=== PATIENT | male | born 2000 | race Caucasian/White ===

== ENCOUNTER 2024-08-14 12:43 | Emergency (ER) | payer MEDICAID, SELFPAY ==
[2024-08-14 12:55] VITALS: BP 150/98; PULSE 104; RESP 18; TEMP 37.2; O2SAT 98; BMI 26.0
--- NOTE | 2024-08-14 12:57 | ED_ITS ---
Discharge Plan Disposition Patient Disposition: Home, Self-Care Condition: Good Prescriptions Prescriptions: New amoxicillin 875 mg tablet 875 mg PO Q12H Qty: 20 0RF methylprednisolone 4 mg Tablets,Dose Pack 4 mg PO DIRECTED 6 Days Qty: 21 0RF Rx Instructions: Take 1 pack as directed for 6 days yiyzfgnjcyrpcqd-pziepfrqr-PD [Bromfed DM] 2-30-10 mg/5 mL Syrup 5 ml PO Q6H PRN (Reason: Cough) Qty: 240 0RF Referrals Follow up/Referrals: Provider,Referral, MD [Primary Care Provider] - See instructions Activity Restrictions/Add. Instructions Additional Instructions/Restrictions: Drink plenty of fluids. Take tylenol or ibuprofen for pain or fever. Take the medications as directed. Follow up with your regular doctor. GO TO THE ER FOR ANY WORSENING SYMPTOMS Don't start the oral steroids (medrol dose pack) until tomorrow since you had the shot here. Clinical Impressions Clinical Impression: Uvulitis, Pharyngitis Stand Alone Forms Stand Alone Forms: Work/School Release Instructions Patient Instructions: DI for Pharyngitis/Tonsillopharyngitis -- Adult, Ceftriaxone Injection, Dexamethasone Injection, DI for Uvulitis Print Language Print Language: Faroese Discharge ED Provider: Shahid Moore [facility] General Stated complaint: sore throat and swollen, mucus Time Seen by Provider: 08/14/24 12:56 History of Present Illness Provider Complaint: He states that for the past 3 days he has had worsening sore throat, productive cough with greenish sputum and malaise. He denies fever. He denies shortness of breath. He denies drooling or the inability to swallow. Related Data Previous Rx's ?Medication ?Instructions ?Recorded amoxicillin 875 mg tablet 875 mg PO Q12H #20 tabs 08/14/24 mfqfldeigemxgae-nfndagwoutyojcs-WK 5 ml PO Q6H PRN Cough #240 mL 08/14/24 2 mg-30 mg-10 mg/5 mL oral syrup (Bromfed DM) methylprednisolone 4 mg tablets in 4 mg PO DIRECTED 6 days #21 tabs 08/14/24 a dose pack Allergies Allergy/AdvReac Type Severity Reaction Status Date / Time No Known Allergies Allergy Verified 08/14/24 13:03 [facility] Disclaimer: The information contained in this section may have been updated after the patient was seen, as this information can be updated by other users. Medical History (Updated 08/14/24 @ 13:18 by Shahid Moore APRN) Depression Anxiety Surgical History (Updated 08/14/24 @ 13:04 by Poornima Osei RN) History of tympanostomy tube placement Social History Smoking Status: Never smoker alcohol intake: never current occupational status: employed Travel in the last 8 weeks: None ROS Obtained: Yes All systems reviewed & no additional complaints except as documented Constitutional Constitutional: Reports as per HPI, Reports chills and Denies fever(s) Eyes Eyes: Denies eye discharge ENT Ears, Nose, Mouth, and Throat: Reports as per HPI Cardiovascular Cardiovascular: Denies chest pain Respiratory Respiratory: Denies shortness of breath, Reports chest congestion, Reports cough, Denies stridor and Denies wheezing Gastrointestinal Gastrointestingal: Reports nausea; Denies abdominal pain, constipation, cramping, diarrhea or vomiting Musculoskeletal Musculoskeletal: Denies arthralgias Integumentary/Breasts Skin/Breast: Denies rash Neurologic Neurologic: Denies paresthesias Allergic/Immunologic Allergic/Immunologic: Denies wheezing Physical Exam General General appearance: alert and in no apparent distress Head Head exam: atraumatic, normocephalic and normal inspection Eye Eye exam: Present normal appearance, PERRL and EOMI ENT ENT exam: Present mucous membranes moist and normal external ear exam Expanded ENT Exam TM/Canal exam: Bilateral TM: erythema Nose exam: Absent sinus tenderness Nasal speculum exam: Bilateral: normal Mouth exam: Present normal external inspection; Absent drooling Throat exam: Present tonsillar erythema, tonsillomegaly, tonsillar exudate and other (enlarged uvula) Neck Neck exam: Present normal inspection, full ROM and trachea midline; Absent meningismus or lymphadenopathy Chest Chest inspection: Present normal inspection and symmetric chest wall rise; Absent tenderness Respiratory Respiratory exam: Present normal lung sounds bilaterally; Absent respiratory distress Cardiovascular Cardiovascular exam: Present regular rate and normal rhythm; Absent JVD Abdominal Exam Abdominal exam: Present soft and normal bowel sounds; Absent distention, tenderness or guarding Extremities Exam Extremities exam: Present normal inspection, full ROM and normal capillary refill; Absent calf tenderness Back Exam Back exam: Present normal inspection; Absent tenderness Neurological Exam Neurological exam: Present alert and oriented X3 Psychiatric Psychiatric exam: Present normal affect and normal mood Skin Skin exam: Present warm, dry, intact and normal color Lymphatic Lymphatic Findings: no adenopathy Medical Decision Making Medical Records Medical records reviewed: No I reviewed the patient's medical records. Screening: Per USPSTF and CDC recommendations, given the prevalence of disease in our region, it is our hospital?s policy to screen for HIV and viral Hepatitis for all patients aged 18 and over and those with ongoing risk factors. Rajesh Inquiry Pt receiving controlled substance: No Lab Data Lab results reviewed: Yes I reviewed the patient's lab results.
[2024-08-14 13:12] LABS: UTC Strep Screen (Rapid) Negative (Negative)
[2024-08-14] MEDS: DEXAMETHASONE 4MG/ML 1ML VIAL 8 MG IM (13:17)
[2024-08-14] MEDS: cefTRIAXone 1GM VIAL 1 GM IM (13:17)
[2024-08-14] MEDS: LIDOCAINE 1% 5ML PF VIAL IM (13:17)
[2024-08-14 13:26] VITALS: BP 150/98; PULSE 104; RESP 18; TEMP 37.2; O2SAT 98
[2024-08-14 13:39] LABS: Coronavirus 19, PCR Not Detected (NotDetected); Influenza A, PCR Not Detected (NotDetected); Influenza B, PCR Not Detected (NotDetected)
== END 2024-08-14 13:32 | disposition home or self-care (01) ==
PROVIDERS: Emergency Provider Nurse Practitioner Family
DX: J02.9 Acute pharyngitis, unspecified (principal); K13.79 Other lesions of oral mucosa
CPT/HCPCS: 87636; 87880; 96372; 99213; G0381; J0696; J1100

== ENCOUNTER 2024-08-15 12:05 | Emergency (ER) | payer MEDICAID, SELFPAY ==
[2024-08-15 12:16] VITALS: BP 136/84; PULSE 102; RESP 16; TEMP 37.2; O2SAT 100; BMI 26.0
[2024-08-15 12:20] VITALS: BP 144/76; PULSE 78; RESP 16; TEMP 37.2; O2SAT 99
--- NOTE | 2024-08-15 12:34 | ED_ITS ---
Discharge Plan Disposition Patient Disposition: Home, Self-Care Condition: Good Prescriptions Prescriptions: No Action amoxicillin 875 mg tablet 875 mg PO Q12H Qty: 20 0RF methylprednisolone 4 mg Tablets,Dose Pack 4 mg PO DIRECTED 6 Days Qty: 21 0RF Rx Instructions: Take 1 pack as directed for 6 days rkgaukciukqpcyb-gmtvlgikl-TC [Bromfed DM] 2-30-10 mg/5 mL Syrup 5 ml PO Q6H PRN (Reason: Cough) Qty: 240 0RF Referrals Follow up/Referrals: Provider,Referral, MD [Primary Care Provider] - See instructions Activity Restrictions/Add. Instructions Additional Instructions/Restrictions: Follow-up with your family doctor regarding this visit to the emergency department within 48 hours. You should begin to notice difference after about 72 hours on antibiotics. Warm salt water rinses and gargling will help the throat as well. Daily Zyrtec can help with drainage. Continue taking antibiotic as prescribed. Clinical Impressions Clinical Impression: Uvulitis Print Language Print Language: Cook Islander Discharge ED Provider: Jenaro Beach General Adult HPI General Chief complaint: Recheck/Abnormal Lab/Rx Stated complaint: elongated uvaula, sore throat Time Seen by Provider: 08/15/24 12:16 Mode of Arrival: Ambulatory Source of Information: Patient Limitations: No Limitations Description of Symptoms (Recalled from ER Triage Doc. by RN): Pt. presents to the end with sore throat, painful swallowing and inflammed uvula. He was see in the [facility] yesterday and tested negative for strep, flu, and covid but was given steriods and amoxicillin for treatment of uvulitis/ pharangitis and told to come back in today if symptoms weren't better. He states he feels about the same and is still having painful swallowing and sore throat. History of Present Illness HPI narrative: Please note that above description of symptoms, in this electronic medical record under categorization of recalled from ER triage doctor by RN are reflective of an initial nursing assessment, however, is not reflective of my full history and physical exam that was personally taken and clarified. Consequentially, this preceding description of symptoms, which may include the patient's categorized chief complaint in the EMR, do not reflect my personal clinical impression, and the ultimate description of history of present illness and patient stated complaints should be deferred to this section of the note. Unless stated otherwise or congruent with this section of the note, additional signs, symptoms, or incongruence should be interpreted as inaccurate with my clinical impression. Related Data Previous Rx's ?Medication ?Instructions ?Recorded amoxicillin 875 mg tablet 875 mg PO Q12H #20 tabs 08/14/24 fwmwdygntfhnbyn-ymsjiqrefrmubvh-YE 5 ml PO Q6H PRN Cough #240 mL 08/14/24 2 mg-30 mg-10 mg/5 mL oral syrup (Bromfed DM) methylprednisolone 4 mg tablets in 4 mg PO DIRECTED 6 days #21 tabs 08/14/24 a dose pack Allergies Allergy/AdvReac Type Severity Reaction Status Date / Time No Known Allergies Allergy Verified 08/14/24 13:03 [facility] Disclaimer: The information contained in this section may have been updated after the patient was seen, as this information can be updated by other users. Medical History (Updated 08/15/24 @ 12:35 by Jenaro Beach MD) Depression Anxiety Surgical History (Updated 08/14/24 @ 13:04 by Poornima Osei RN) History of tympanostomy tube placement Social History (Updated 08/14/24 @ 13:36 by Shahid Moore APRN) Smoking Status: Never smoker alcohol intake: never current occupational status: employed Travel in the last 8 weeks: None ROS Obtained: Yes All systems reviewed & no additional complaints except as documented Physical Exam General General appearance: alert Head Head exam: atraumatic and normocephalic Eye Eye exam: Present normal appearance, PERRL and EOMI ENT ENT exam: Present other (Pharyngitis with uvulitis. No evidence of uvular deviation, palatal swelling, trismus, external neck swelling, submental induration, dental abscess, angioedema, or other abnormal katarzyna pharyngeal fin dings) Neck Neck exam: Present normal inspection, full ROM and trachea midline Respiratory Respiratory exam: Absent respiratory distress, wheezes, stridor, accessory muscle use or prolonged expiratory phase Cardiovascular Cardiovascular exam: Present other (Pulses equal symmetric in upper and lower extremities) Abdominal Exam Abdominal exam: Present soft; Absent distention, tenderness or pulsatile mass Extremities Exam Extremities exam: Absent edema Neurological Exam Neurological exam: Present alert, oriented X3 and CN II-XII intact; Absent motor sensory deficit Skin Skin exam: Present warm and dry; Absent diaphoresis or erythema Medical Decision Making Medical Records Medical records reviewed: Yes I reviewed the patient's medical records. Screening: Per USPSTF and CDC recommendations, given the prevalence of disease in our region, it is our hospital?s policy to screen for HIV and viral Hepatitis for all patients aged 18 and over and those with ongoing risk factors. Rajesh Inquiry Pt receiving controlled substance: No Rajesh was queried for this patient: No Vital Signs: 08/15/24 12:16 08/15/24 12:20 Temperature 99.0 F 99.0 F Temperature Source Oral Oral Pulse Rate [Right Brachial] 102 H 78 Respiratory Rate 16 16 Blood Pressure [Right Arm] 136/84 144/76 H Blood Pressure Mean [Right Arm] 101 98 Blood Pressure Source [Right Arm] Automatic Cuff Automatic Cuff Blood Pressure Position [Right Arm] Sitting Sitting 02 Sat by Pulse Oximetry 100 99 Oxygen Delivery Method Room Air Room Air Medical Decision Narrative: 24-year-old male presenting with uvulitis. Patient started having symptoms of drainage, cough, upper respiratory infection about a week prior to this. For the last 36 hours or so he developed throat. Went to the urgent care yesterday. Received antibiotic shot, Decadron shot and amoxicillin for home-going. Was told if it did not get better by yesterday evening to come back to the emergency department. Patient states that it is not any worse, not any better. Able to tolerate p.o. intake, no voice changes, red flag signs or symptoms. Came back because it was not improved. History obtained with patient. On evaluation, patient very well-appearing. He does have uvulitis with pharyngitis, no evidence of other red flag signs or symptoms. No evidence of tonsillitis, exudate, uvular deviation, palatal swelling, trismus, external neck swelling, submental induration, dental abscess, angioedema, or other abnormal katarzyna pharyngeal findings. Because of this I feel patient is on appropriate therapy, ready for discharge with outpatient management. Because patient at baseline without signs or symptoms of clinical decompensation, deemed appropriate for discharge. Results were relayed to patient who voiced understanding and were agreeable to outpatient management and follow up. I discussed my clinical impression with patient and answered all questions. At this time, the evidence for any other entities in the differential is insufficient to warrant any further testing or ED observation. This was explained as well. Advisory was given that persistent or worsening symptoms require further evaluation. I confirmed the understanding of this discussion. Net Mvc Developer disclaimer Much of this encounter note is an electronic rn interventional spoken language to printed text. Electronic rn interventional of the spoken language may permit errors. Although I have reviewed the note, some errors may still exist. Critical Care Critical Care Time Critical Care Time: No
[2024-08-15 12:38] VITALS: BP 122/78; PULSE 78; RESP 16; TEMP 37.2; O2SAT 99
== END 2024-08-15 12:39 | disposition home or self-care (01) ==
PROVIDERS: Emergency Provider Emergency Medicine
DX: K13.79 Other lesions of oral mucosa (principal)
CPT/HCPCS: 99282

== ENCOUNTER 2024-08-21 21:11 | Emergency (ER) | payer SELFPAY ==
[2024-08-21 21:12] VITALS: BP 143/78; PULSE 100; RESP 18; TEMP 37.1; O2SAT 98; BMI 21.2; BMI 26.0
[2024-08-21] MEDS: DEXAMETHASONE 4MG TABLET 10 MG PO (21:42)
[2024-08-21] MEDS: METHOCARBAMOL 500MG TABLET 1500 MG PO (21:42)
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
[2024-08-21 22:40] VITALS: BP 135/80; PULSE 88; RESP 18; TEMP 37.1; O2SAT 99
== END 2024-08-21 22:41 | disposition home or self-care (01) ==
PROVIDERS: Emergency Provider Emergency Medicine
DX: R20.2 Paresthesia of skin (principal); S16.1XXA Strain of muscle, fascia and tendon at neck level, initial encounter; S06.0XAA Concussion with loss of consciousness status unknown, initial encounter; R51.9 Headache, unspecified; M54.9 Dorsalgia, unspecified; M25.511 Pain in right shoulder; M25.512 Pain in left shoulder; M54.2 Cervicalgia
CPT/HCPCS: 99282; J8540